=== PATIENT | male | born 1985 | race Caucasian/White ===

== ENCOUNTER 2023-08-12 08:33 | Emergency (ER) | payer OTHER, SELFPAY ==
--- NOTE | ~2023-08-12 | XR_ITS ---
XR toe 1st LT min 2V 08/12/2023 09:29 Indication: Left first toe pain Procedure: 4 views left first toe Comparison: No prior studies for comparison. Findings: There is a possible small nondisplaced avulsion proximal lateral margin first proximal phal anx, best seen on oblique image. Mild osteoarthritis of the interphalangeal joint. Mild soft tissue s welling of the first digit. No foreign bodies. Mild osteoarthritis of the first MTP joint. Impression: 1: Possible nondisplaced fracture left first proximal phalanx. 2: Mild polyarticular osteoarthritis. Reviewed, dictated and finalized at location A. Impression: 1: Possible nondisplaced fracture left first proximal phalanx. 2: Mild polyarticular osteoarthritis.
[2023-08-12 08:57] VITALS: BP 116/80; PULSE 73; RESP 16; TEMP 36.1; O2SAT 98
[2023-08-12 08:58] VITALS: BP 116/80; PULSE 73; RESP 16; TEMP 36.1; O2SAT 98
--- NOTE | 2023-08-12 09:23 | ED.EXTPRO ---
HPI - Extremity Problem General Chief complaint: Extremity Problem,Nontraumatic Stated complaint: L TOE PAIN/SWELLING Source: patient Mode of arrival: ambulatory Limitations: no limitations History of Present Illness HPI Narrative: Patient presents for evaluation of pain in the left great toe for the last week. He had been hiking but denies knowledge of any traumatic event. At rest he rates his pain 1/10 in severity but increases to 7/10 with weight-bearing. He has associated swelling and redness. He tried taking tylenol, which seemed to help. No paresthesias. No fever, chills, nausea, vomiting, drainage from the affected area. Related Data Home Medications Medication Instructions Recorded Confirmed montelukast 10 mg tablet mg 08/12/23 Allergies Allergy/AdvReac Type Severity Reaction Status Date / Time No Known Allergies Allergy Verified 08/12/23 08:57 Review of Systems Review of Systems: CONSTITUTIONAL: Denies fever, chills, or sweats. EYES: Denies visual changes, redness, or discharge. ENT: Denies rhinorrhea, congestion, sore throat, or otalgia. CARDIOVASCULAR: Denies chest pain, palpitations, or edema. RESPIRATORY: Denies cough or dyspnea. GASTROINTESTINAL: Denies abdominal pain, nausea, vomiting, or diarrhea. GENITOURINARY: Denies dysuria or hematuria. SKIN: Reports redness to left great toe. Denies drainage. Denies rash or itching. MUSCULOSKELETAL: Reports pain and swelling in left great toe. NEUROLOGIC: Denies headache, numbness, dizziness, or weakness. PSYCHIATRIC: Denies anxiety or depression. [facility] Past Medical History Medical History No pertinent past medical history Surgical History Surgical History History of arthroscopic knee surgery Family History Family History Mother Family history non-contributory Social History Social History Alcohol intake: current Alcohol use details: social Substance use: never Living arrangements: with family Gender identity (if verbalized by the patient): Male Sexual Orientation (if Verbalized by the Patient): Lesbian, Martinez, or Homosexual Spiritual care concerns: No Exam Narrative: GENERAL: Well-appearing, well-nourished, and in no acute distress. HEAD: Normocephalic, atraumatic. EYES: PERRLA and EOMI. ENT: Nares clear, no rhinorrhea or epistaxis. Mucous membranes moist. Oropharynx without tonsillar hypertrophy exudate or other lesions. Bilateral TMs pearly ramachandran nonbulging NECK: Supple. No adenopathy or masses. No carotid bruits or JVD CHEST: Clear to auscultation. No respiratory distress. No wheezes rales or rhonchi HEART: Regular rate and rhythm. No murmur heard. Normal peripheral pulses. ABDOMEN: Soft, nontender, nondistended, normal active bowel sounds. EXTREMITIES: There is soft tissue swelling with tenderness to proximal and distal phalanges of the left great toe. Normal range of motion. SKIN: there is erythema noted to the distal phalanx of the left great toe NEURO: No focal deficits. Alert and oriented x3. PSYCH: Normal mood and affect. Course Course Emergency Course: This is a 37-year-old male who presented for evaluation of pain in the left great toe. X-ray questionable for proximal phalanx fracture. He is tender in that area so will discharge with postop shoe and crutches advised to remain nonweightbearing until he can follow up with Podiatry. There is also concern for gout and or paronychia. Will also dc with indomethacin and doxycycline. Advised not to take other NSAIDs while on indomethacin. Provided with follow up with podiatry. Go to the ER for worsening symptoms. Pt in agreement with plan of care. Level of Care: Express Care Visit Vital Signs Vital signs: Natalie
== END 2023-08-12 10:00 | disposition home or self-care (01) ==
PROVIDERS: Emergency Provider Nurse Practitioner; PCP Hospitalist
DX: S92.415A Nondisplaced fracture of proximal phalanx of left great toe, initial encounter for closed fracture (principal); X58.XXXA Exposure to other specified factors, initial encounter
CPT/HCPCS: 73660; 99214; G0463